=== PATIENT | female | born 1970 | race American Indian/Alaskan Native ===

== ENCOUNTER 2018-03-17 12:30 | Emergency (ER) | payer SELFPAY ==
[2018-03-17 12:39] VITALS: BP 143/65
--- NOTE | 2018-03-17 14:02 | Emergency Department Report ---
Chief Complaint: Extremity Injury, Lower Stated Complaint: LEFT LEG PAIN Time Seen by Provider: 03/17/18 13:50 - HPI History of Present Illness: 47-year-old female presents to the emergency department with a one-week history of left leg pain, worst towards the calf. 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 She denies any swelling, skin color change or trauma to the area. She otherwise denies any past medical history. There is some family history of DVT. She is not taking anything for her symptoms prior presentation. - ROS Review of Systems: Positive for left leg pain Negative for edema, skin color change, rash - Exam Vital Signs: Vital Signs 03/17/18 12:34 Temperature 98.5 F Pulse Rate 68 Respiratory 16 Rate Blood Pressure 143/65 O2 Sat by Pulse 97 Oximetry Physical Exam: There is some reproducible tenderness palpation to the left calf. Heart and lungs sounds are normal to auscultation. Patient does not appear in any acute distress. MSE screening note: Focused history and physical exam performed. Due to findings the following was ordered: I have ordered a left lower extremity venous Doppler ultrasound to rule out a DVT. ED Disposition for MSE Condition: Stable Referrals: PRIMARY CARE, [Primary Care Provider] - 3-5 Days
--- NOTE | 2018-03-17 16:05 | Emergency Department Report ---
HPI - General Chief Complaint: Extremity Injury, Lower Time Seen by Provider: 03/17/18 13:50 - HPI HPI: 47-year-old female presents to the emergency department with a one-week history of left leg pain, worst towards the calf. 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 She denies any swelling, skin color change or trauma to the area. She otherwise denies any past medical history. There is some family history of DVT. She is not taking anything for her symptoms prior presentation. ED Past Medical Hx - Past Medical History Previous Medical History?: No - Surgical History Past Surgical History?: No - Social History Smoking Status: Current Some Day Smoker Substance Use Type: None - Medications Home Medications: Home Medications Medication Instructions Recorded Confirmed Last Taken Type HYDROcodone/APAP 5-325 [[place] 1 each PO Q6HR PRN #10 tablet 03/17/18 Unknown Rx 5/325] ED Review of Systems ROS: Stated complaint: LEFT LEG PAIN Other details as noted in HPI Comment: All other systems reviewed and negative Constitutional: denies: chills, fever Eyes: denies: eye pain, eye discharge, vision change ENT: denies: ear pain, throat pain Respiratory: denies: cough, shortness of breath, wheezing Cardiovascular: denies: chest pain, palpitations Gastrointestinal: denies: abdominal pain, nausea, diarrhea Genitourinary: denies: urgency, dysuria, discharge Musculoskeletal: arthralgia, myalgia Skin: denies: rash, lesions Neurological: denies: headache, weakness, paresthesias Physical Exam - Physical Exam Vital Signs: Vital Signs 03/17/18 03/17/18 12:34 15:51 Temperature 98.5 F Pulse Rate 68 Respiratory 16 18 Rate Blood Pressure 143/65 O2 Sat by Pulse 97 99 Oximetry Physical Exam: GENERAL: The patient is well-developed well-nourished. HENT: Normocephalic. Atraumatic. Patient has moist mucous membranes. EYES: Extraocular motions are intact. Pupils equal reactive to light bilaterally. NECK: Supple. Trachea is midline. CHEST/LUNGS: Clear to auscultation. There is no respiratory distress noted. HEART/CARDIOVASCULAR: Regular. There is no tachycardia. There is no murmur. ABDOMEN: Abdomen is soft, nontender. Patient has normal bowel sounds. Obese habitus. SKIN: Skin is warm and dry. There is no appreciable skin color change, rash or lesions to the affected left lower leg area NEURO: The patient is awake, alert, and oriented. The patient is cooperative. The patient has no focal neurologic deficits. The patient has normal speech. MUSCULOSKELETAL: There is tenderness palpation along the left calf but no obvious deformity. There is no limitation range of motion. ED Course Vital Signs 03/17/18 03/17/18 12:34 15:51 Temperature 98.5 F Pulse Rate 68 Respiratory 16 18 Rate Blood Pressure 143/65 O2 Sat by Pulse 97 99 Oximetry ED Medical Decision Making - Radiology Data Radiology results: report reviewed, image reviewed interpreted by me: X-ray of the left tib-fib does not show any fracture, dislocation or any acute process. Left lower extremity venous Doppler is negative for DVT or any acute process. - Medical Decision Making Patient presents with some ongoing left leg pain, worst towards the calf. No obvious swelling, skin color change, rash or lesions. Venous Doppler of the left lower extremity did not show any signs of DVT. X-ray did not show any occult fracture, dislocation or any other acute process. Patient was seen and towards prior to discharge and appeared stable. She's been given a referral for primary care and an orthopedist as well as some pain medication for home. She is been encouraged to return to the emergency Department with any worsening of her symptoms or any acute distress. - Differential Diagnosis DVT, cellulitis, superficial thrombophlebitis, calf strain Critical Care Time: No Critical care attestation.: If time is entered above; I have spent that time in minutes in the direct care of this critically ill patient, excluding procedure time. ED Disposition Clinical Impression: Left leg pain Disposition: DC-01 TO HOME OR SELFCARE Is pt being admited?: No Condition: Stable Instructions: Arthralgia (ED) Additional Instructions: Please follow up with a primary care physician in the next few days if possible. I have given you a referral for a local orthopedist, Dr. Hutchinson, to follow up regarding your left leg pain. Return to the emergency Department with any worsening of your symptoms or any acute distress. You have been prescribed a medication that is sedating and therefore should not be taken prior to driving, working, and responsible for children and in no way should be mixed with alcohol of any quantity. Prescriptions: HYDROcodone/APAP 5-325 [[place] 5/325] 1 each PO Q6HR PRN #10 tablet PRN Reason: Pain Referrals: CRYSTAL HUTCHINSON MD [Staff Physician] - 3-5 Days PITER DOLAN MD [Staff Physician] - 3-5 Days [facility] [Outside] - 3-5 Days Time of Disposition: 16:14
--- NOTE | 2018-03-17 16:19 | XRay Report ---
FINAL REPORT EXAM: XR TIBIA FIBULA 2V LT HISTORY: left lower leg pain TECHNIQUE: Frontal and lateral views of left tibia. PRIORS: None. FINDINGS: No apparent fracture or dislocation. Soft tissues grossly unremarkable. IMPRESSION: 1. No acute osseous abnormality.
== END 2018-03-17 16:13 | disposition home or self-care (01) ==
LOC: ED 12:30
DX: M79.605 Pain in left leg (principal); F17.200 Nicotine dependence, unspecified, uncomplicated
CPT/HCPCS: 99284

== ENCOUNTER 2018-03-29 14:20 | Emergency (ER) | payer SELFPAY ==
[2018-03-29] MEDS ORDERED: MOTRIN PO ONE (17:08)
--- NOTE | 2018-03-29 18:09 | Emergency Department Report ---
ED Lower Extremity HPI - General Chief Complaint: Extremity Injury, Lower Stated Complaint: KNEE PAIN Time Seen by Provider: 03/29/18 17:02 Source: patient Mode of arrival: Ambulatory Limitations: No Limitations - History of Present Illness Initial Comments: This is a 48-year-old female nontoxic, well nourished in appearance, no acute signs of distress presents to the ED with c/o of acute on chronic intermittent left knee pain 1 week. Patient was seen last month and had a normal tib/fib xray with negative doppler US for DVT/SVT. Patient stated that symptoms resolved since last visit but started again 2 days ago. Patient denies any trauma. Patient denies any numbness, tingling, fever, chills, nausea, vomiting , chest pain, shortness of breath, headache, stiff neck. Patient denies any joint swelling or joint redness. Patient denies decreased range of motion. Patient stated has decreased gait due to pain. Patient denies any allergies or significant past medical history. MD Complaint: knee injury -: week(s) (1) Injury: Knee: Left Place: home Severity: mild Severity scale (0 -10): 3 Improves With: immobilization Worsens With: weight bearing, movement Associated Symptoms: able to partially bear weight, ambulatory. denies: snap/ pop sensation, swelling, numbness, tingling, unable to bear weight - Related Data Previous Rx's Medication Instructions Recorded Last Taken Type HYDROcodone/APAP 5-325 [[place] 1 each PO Q6HR PRN #10 tablet 03/17/18 Unknown Rx 5/325] Acetaminophen/Codeine [Tylenol 1 tab PO Q6H PRN #12 tab 03/29/18 Unknown Rx /Codeine # 3 tab] Ibuprofen [Motrin] 600 mg PO Q8H PRN #30 tablet 03/29/18 Unknown Rx ED Review of Systems ROS: Stated complaint: KNEE PAIN Other details as noted in HPI Constitutional: denies: chills, fever Eyes: denies: eye pain, eye discharge, vision change ENT: denies: ear pain, throat pain Respiratory: denies: cough, shortness of breath, wheezing Cardiovascular: denies: chest pain, palpitations Endocrine: no symptoms reported Gastrointestinal: denies: abdominal pain, nausea, diarrhea Genitourinary: denies: urgency, dysuria, discharge Musculoskeletal: denies: back pain, joint swelling, arthralgia Skin: denies: rash, lesions Neurological: denies: headache, weakness, paresthesias Psychiatric: denies: anxiety, depression Hematological/Lymphatic: denies: easy bleeding, easy bruising ED Past Medical Hx - Past Medical History Previous Medical History?: No - Surgical History Past Surgical History?: No - Social History Smoking Status: Current Every Day Smoker Substance Use Type: None - Medications Home Medications: Home Medications Medication Instructions Recorded Confirmed Last Taken Type HYDROcodone/APAP 5-325 [[place] 1 each PO Q6HR PRN #10 tablet 03/17/18 Unknown Rx 5/325] Acetaminophen/Codeine [Tylenol 1 tab PO Q6H PRN #12 tab 03/29/18 Unknown Rx /Codeine # 3 tab] Ibuprofen [Motrin] 600 mg PO Q8H PRN #30 tablet 03/29/18 Unknown Rx ED Physical Exam - General Limitations: No Limitations General appearance: alert, in no apparent distress - Head Head exam: Present: atraumatic, normocephalic - Eye Eye exam: Present: normal appearance Pupils: Present: normal accommodation - ENT ENT exam: Present: normal exam, mucous membranes moist - Neck Neck exam: Present: normal inspection, full ROM. Absent: tenderness, meningismus, lymphadenopathy - Respiratory Respiratory exam: Present: normal lung sounds bilaterally. Absent: respiratory distress, wheezes, rales, rhonchi, stridor, chest wall tenderness, accessory muscle use, decreased breath sounds, prolonged expiratory - Cardiovascular Cardiovascular Exam: Present: regular rate, normal rhythm, normal heart sounds. Absent: bradycardia, tachycardia, irregular rhythm, systolic murmur, diastolic murmur, rubs, gallop - GI/Abdominal GI/Abdominal exam: Present: soft, normal bowel sounds. Absent: distended, tenderness, guarding, rebound, rigid, diminished bowel sounds - Extremities Exam Extremities exam: Present: normal inspection, full ROM, tenderness, normal capillary refill. Absent: joint swelling - Expanded Lower Extremity Exam Left Hip exam: Present: normal inspection, full ROM. Absent: tenderness, swelling Upper Leg exam: Present: normal inspection, full ROM. Absent: tenderness, swelling Knee exam: Present: normal inspection, full ROM, tenderness, full knee extension. Absent: swelling, abrasion, laceration, ecchymosis, deformity, crepidus, dislocation, erythema, effusion, pain w/ pronation/supination, posterior draw sign, pain/laxity with valgus, pain/laxity with varus Lower Leg exam: Present: normal inspection, full ROM. Absent: tenderness, swelling Ankle exam: Present: normal inspection, full ROM. Absent: tenderness, swelling Foot/Toe exam: Present: normal inspection, full ROM. Absent: tenderness, swelling Neuro vascular tendon exam: Present: no vascular compromise. Absent: pulse deficit, abnormal cap refill, motor deficit, sensory deficit, tendon deficit, extremity cold to touch, pallor, abnormal 2-point discrimination, decreased fine /light touch, foot drop, peroneal nerve deficit, significant pain with passive ROM of distal joint Gait: Positive: observed and limited by pain - Back Exam Back exam: Present: normal inspection, full ROM - Neurological Exam Neurological exam: Present: alert, oriented X3, normal gait - Psychiatric Psychiatric exam: Present: normal affect, normal mood - Skin Skin exam: Present: warm, dry, intact, normal color. Absent: rash ED Course Vital Signs 03/29/18 03/29/18 14:26 17:23 Temperature 98.2 F Pulse Rate 72 Respiratory 18 18 Rate Blood Pressure 127/58 O2 Sat by Pulse 97 Oximetry - Reevaluation(s) Reevaluation #1: 03/29/18 18:11 Patient is speaking in full sentences with no signs of distress noted. ED Lower Extremity MDM - Medical Decision Making This is a 48-year-old female that presents with left knee strain. Patient is stable and was examined by me. I referred patient to an orthopedic doctor for further evaluation for possible MRI. X-ray has been obtained and dictated by the radiologist. Patient is notified of the x-ray report with noted by the patient. Patient does have normal gait with no tenderness and no joint swelling. No ecchymosis. no joint redness or swelling. Not warm to touch. No signs of cellulites present. Patient received a knee immobilizer. Patient was instructed to RICE therapy. Patient received Motrin for pain. Patient is discharged with Motrin. At time of discharge, the patient does not seem toxic or ill in appearance. No acute signs of distress noted. Patient agrees to discharge treatment plan of care. No further questions noted by the patient. Critical care attestation.: If time is entered above; I have spent that time in minutes in the direct care of this critically ill patient, excluding procedure time. ED Disposition Clinical Impression: Strain of left knee Qualifiers: Encounter type: initial encounter Qualified Code(s): S86.912A - Strain of unspecified muscle(s) and tendon(s) at lower leg level, left leg, initial encounter Disposition: TO HOME OR SELFCARE Is pt being admited?: No Does the pt Need Aspirin: No Condition: Stable Instructions: Acetaminophen/Codeine (By mouth), Knee Pain (ED), Knee Immobilizer (ED), RICE Therapy (ED) Additional Instructions: Follow-up with a orthopedic doctor in 3-5 days or if symptoms worsen and continue return to emergency room as soon as possible. Do not operate any machinery while taking Tylenol with codeine as this may cause drowsiness. Prescriptions: Acetaminophen/Codeine [Tylenol /Codeine # 3 tab] 1 tab PO Q6H PRN #12 tab PRN Reason: Pain , Severe (7-10) Ibuprofen [Motrin] 600 mg PO Q8H PRN #30 tablet PRN Reason: Pain Referrals: PRIMARY CAREMD [Primary Care Provider] - 3-5 Days CRYSTAL PATHAK MD [Staff Physician] - 3-5 Days [facility] [Outside] - 3-5 Days [facility] [Outside] - 3-5 Days Forms: Work/School Release Form(ED)
--- NOTE | 2018-03-29 18:14 | XRay Report ---
FINAL REPORT EXAM: XR KNEE 3V RT HISTORY: knee pain medial left knee pain for 1 month. No known injury. Pain with extension. TECHNIQUE: Frontal, lateral, oblique views right knee FINDINGS: There is no evidence of fracture, subluxation, lytic or blastic change or periosteal reaction. The joint spaces appear to be maintained. The soft tissues are unremarkable. IMPRESSION: 1. No plain film evidence of bony or soft tissue abnormality. If further imaging is required, MRI may be helpful.
[2018-03-29 18:31] VITALS: BP 124/81
== END 2018-03-29 18:28 | disposition home or self-care (01) ==
LOC: ED 14:20
DX: S86.912A Strain of unspecified muscle(s) and tendon(s) at lower leg level, left leg, initial encounter (principal); F17.200 Nicotine dependence, unspecified, uncomplicated; X58.XXXA Exposure to other specified factors, initial encounter; Y93.89 Activity, other specified; Y99.8 Other external cause status; Y92.009 Unspecified place in unspecified non-institutional (private) residence as the place of occurrence of the external cause
CPT/HCPCS: 99283

== ENCOUNTER 2018-09-29 05:57 | Inpatient (IN) | payer OTHER ==
--- NOTE | 2018-09-29 06:27 | XRay Report ---
FINAL REPORT PROCEDURE: XR CHEST ROUTINE 2V TECHNIQUE: PA and lateral chest radiographs were obtained. CPT 86894 HISTORY: chest pain with cough. COMPARISON: No prior studies are available for comparison. FINDINGS: Heart: Normal. Mediastinum/Vessels: Normal. Lungs/Pleural space: Lungs are expanded. There are no infiltrates, effusions or pneumothoraces.. Bony thorax: No acute osseous abnormality. Other: IMPRESSION: Normal heart and lungs..
--- NOTE | 2018-09-29 07:11 | Emergency Department Report ---
ED Chest Pain HPI - General Chief Complaint: Chest Pain Stated Complaint: COLD SX Time Seen by Provider: 09/29/18 07:07 Source: patient Mode of arrival: Ambulatory Limitations: No Limitations - History of Present Illness Initial Comments: Patient is a 48-year-old female with extensive emergency room with complaints of chest pain and shortness of breath 3 hours. They state started at work today was having difficulty breathing while working. Patient states the chest pain as a 10 out of 10 and is not radiating. Patient states chest pain is in the center of her chest. Patient states the pain is worse with exertion and cough. Patient states the chest pain is better with rest. Patient is also complaining of cold-like symptoms. Patient is complaining of nasal congestion and nausea vomiting. Patient denies fever and chills. MD Complaint: chest pain -: Sudden Onset: during rest Pain Location: substernal Pain Radiation: none Severity: severe Severity scale (0 -10): 10 Quality: sharp Consistency: constant Improves With: rest Worsens With: exertion, other (COUGH) re: nausea, vomting, dyspnea. denies: diaphoresis, sense of impending doom Other Symptoms: cough. denies: fever, syncope, rash, acid taste in mouth, leg swelling, palpitations, burping Treatments Prior to Arrival: none Aspirin use within the Past 7 Days: (0) No - Related Data On Oral Contraceptives: No Previous Rx's Medication Instructions Recorded Last Taken Type HYDROcodone/APAP 5-325 [[place] 1 each PO Q6HR PRN #10 tablet 03/17/18 Unknown Rx 5/325] Acetaminophen/Codeine [Tylenol 1 tab PO Q6H PRN #12 tab 03/29/18 Unknown Rx /Codeine # 3 tab] Ibuprofen [Motrin] 600 mg PO Q8H PRN #30 tablet 03/29/18 Unknown Rx Allergies Allergy/AdvReac Type Severity Reaction Status Date / Time No Known Allergies Allergy Unverified 07/10/18 16:41 Heart Score - HEART Score History: Slightly suspicious EKG: Normal Age: 45-65 Risk factors: No known risk factors Troponin: < normal limit HEART Score: 1 ED Review of Systems ROS: Stated complaint: COLD SX Other details as noted in HPI Constitutional: denies: chills, fever Eyes: denies: eye pain, eye discharge, vision change ENT: denies: ear pain, throat pain Respiratory: cough, shortness of breath. denies: wheezing Cardiovascular: chest pain. denies: palpitations Endocrine: no symptoms reported Gastrointestinal: nausea, vomiting. denies: abdominal pain, diarrhea Genitourinary: denies: urgency, dysuria, discharge Musculoskeletal: denies: back pain, joint swelling, arthralgia Skin: denies: rash, lesions Neurological: denies: headache, weakness, paresthesias Psychiatric: denies: anxiety, depression Hematological/Lymphatic: denies: easy bleeding, easy bruising ED Past Medical Hx - Past Medical History Previous Medical History?: No - Surgical History Past Surgical History?: Yes Additional Surgical History: Left knee surgery - Family History Family history: no significant - Social History Smoking Status: Never Smoker Substance Use Type: None - Medications Home Medications: Home Medications Medication Instructions Recorded Confirmed Last Taken Type HYDROcodone/APAP 5-325 [[place] 1 each PO Q6HR PRN #10 tablet 03/17/18 Unknown Rx 5/325] Acetaminophen/Codeine [Tylenol 1 tab PO Q6H PRN #12 tab 03/29/18 Unknown Rx /Codeine # 3 tab] Ibuprofen [Motrin] 600 mg PO Q8H PRN #30 tablet 03/29/18 Unknown Rx ED Physical Exam - General Limitations: No Limitations General appearance: alert, in no apparent distress - Head Head exam: Present: atraumatic, normocephalic - Eye Eye exam: Present: normal appearance, PERRL Pupils: Present: normal accommodation - ENT ENT exam: Present: mucous membranes moist - Neck Neck exam: Present: normal inspection - Respiratory Respiratory exam: Present: normal lung sounds bilaterally. Absent: respiratory distress - Cardiovascular Cardiovascular Exam: Present: regular rate, normal rhythm. Absent: systolic murmur, diastolic murmur, rubs, gallop - GI/Abdominal GI/Abdominal exam: Present: soft, normal bowel sounds. Absent: distended, ten derness, guarding - Extremities Exam Extremities exam: Present: normal inspection - Back Exam Back exam: Present: normal inspection - Neurological Exam Neurological exam: Present: alert, oriented X3 - Psychiatric Psychiatric exam: Present: normal affect, normal mood - Skin Skin exam: Present: warm, dry, intact, normal color. Absent: rash ED Course Vital Signs 09/29/18 09/29/18 09/29/18 06:24 06:59 07:00 Temperature 99.5 F 99 F Pulse Rate 76 70 71 Respiratory 18 26 H 19 Rate Blood Pressure 109/63 119/61 Blood Pressure 125/67 [Left] O2 Sat by Pulse 93 98 98 Oximetry 09/29/18 09/29/18 09/29/18 08:00 08:20 08:36 Temperature Pulse Rate 80 68 Respiratory 20 26 H Rate Blood Pressure 103/45 103/45 103/45 Blood Pressure [Left] O2 Sat by Pulse 99 100 91 Oximetry 09/29/18 09/29/18 09/29/18 08:40 08:50 09:00 Temperature Pulse Rate Respiratory Rate Blood Pressure 103/45 103/45 103/45 Blood Pressure [Left] O2 Sat by Pulse 100 100 100 Oximetry 09/29/18 09/29/18 09/29/18 09:10 09:20 09:30 Temperature Pulse Rate Respiratory Rate Blood Pressure 103/45 103/45 103/45 Blood Pressure [Left] O2 Sat by Pulse 100 100 100 Oximetry 09/29/18 09:40 Temperature Pulse Rate Respiratory Rate Blood Pressure 103/45 Blood Pressure [Left] O2 Sat by Pulse 96 Oximetry - Reevaluation(s) Reevaluation #1: Patient's lung process. Patient is wheezing. Patient was given a breathing treatment. Patient's oxygen is better with 2 L of oxygen. Patient was initially hypoxic. Patient was admitted to the hospitalist service. 09/29/18 09:07 - Consultations Consultation #1: Hospitalist consulted for admission. Hospitalist to admit patient. Hospitalist to assume care. 09/29/18 09:09 LIZ score - Liz Score Age > 65: (0) No Aspirin use within the Past 7 Days: (0) No 3 or more CAD Risk Factors: (0) No 2 or more Angina events in past 24 hrs: (0) No Known CAD with more than 50% Stenosis: (0) No Elevated Cardiac Markers: (0) No ST Deviation Greater than 0.5mm: (0) No LIZ Score: 0 ED Medical Decision Making - Lab Data Result diagrams: 09/29/18 10:48 09/29/18 10:48 - EKG Data -: EKG Interpreted by Co EKG shows normal: sinus rhythm, axis, intervals, QRS complexes, ST-T waves Rate: normal - Radiology Data Radiology results: report reviewed CTA CHEST: HISTORY: Elevated D. dimer, rule out pulmonary embolus. COMPARISON: none. TECHNIQUE: Helical CT in 1.25mm intervals following IV contrast. Pulmonary embolus protocol. Sagittal and coronal reformatted images. Rotational MIP images. FINDINGS: Contrast bolus is satisfactory. No pulmonary embolus is identified. Thyroid gland: Normal. Tracheobronchial tree: Normal. Esophagus: Normal. Heart: Normal. Pericardium: Normal. Mediastinum: Normal. Lung Sánchez: Normal. Pleural Spaces: Normal. Musculoskeletal: Normal. IMPRESSION: No evidence for pulmonary embolus. Unremarkable CT chest with contrast. - Medical Decision Making Patient is a 48-year-old female that presents emergency room with complaints of chest pain, cough, nausea vomiting. Patient found to have a bronchitis. Patient's initial cardiac workup was negative. Patient's chest x-ray and CTA are negative. Patient's labs except for low WBC. Patient admitted to the hospitalist service for further evaluation treatment. Patient's initial oxygen level hypoxic. Patient given steroids and breathing treatment. - Differential Diagnosis bronchitis. URI. pna. PE. cp. Critical Care Time: Yes Critical care attestation.: If time is entered above; I have spent that time in minutes in the direct care of this critically ill patient, excluding procedure time. Critical Care Time: 35 minutes ED Disposition Clinical Impression: Hypoxia, Bronchitis, Cough Chest pain Qualifiers: Chest pain type: unspecified Qualified Code(s): R07.9 - Chest pain, unspecified Disposition: OP ADMIT IP TO THIS HOSP Is pt being admited?: Yes Does the pt Need Aspirin: No Condition: Serious Time of Disposition: 09:08
[2018-09-29 07:44] LABS: Hematocrit 38.3 % (30.3-42.9); Mean Corpuscular Volume 94 fl (79-97); Red Blood Count 4.09 M/mm3 (3.65-5.03)
[2018-09-29 07:45] LABS: Basophils # (Auto) 0.1 K/mm3 (0.0-0.1); Basophils % (Auto) 2.6 % (0.0-1.8); Eosinophils # (Auto) 0.1 K/mm3 (0.0-0.4); Eosinophils % (Auto) 1.7 % (0.0-4.3); Lymphocytes # (Auto) 1.1 K/mm3 (1.2-5.4); Lymphocytes % (Auto) 28.1 % (13.4-35.0); Mean Corpuscular HGB Conc 34 % (30-34); Monocytes # (Auto) 0.4 K/mm3 (0.0-0.8); Monocytes % (Auto) 11.1 % (0.0-7.3); Platelet Count 161 K/mm3 (140-440); Red Cell Distribution Width 13.2 % (13.2-15.2)
[2018-09-29 07:56] LABS: Alanine Aminotransferase 10 units/L (7-56); Albumin 3.8 g/dL (3.9-5); BUN/Creatinine Ratio 8; Blood Urea Nitrogen 6 mg/dL (7-17); Calcium 8.4 mg/dL (8.4-10.2); Hemolysis Index 6
--- NOTE | 2018-09-29 08:46 | Cat Scan Report ---
CTA CHEST: HISTORY: Elevated D. dimer, rule out pulmonary embolus. COMPARISON: none. TECHNIQUE: Helical CT in 1.25mm intervals following IV contrast. Pulmonary embolus protocol. Sagittal and coronal reformatted images. Rotational MIP images. FINDINGS: Contrast bolus is satisfactory. No pulmonary embolus is identified. Thyroid gland: Normal. Tracheobronchial tree: Normal. Esophagus: Normal. Heart: Normal. Pericardium: Normal. Mediastinum: Normal. Lung Sánchez: Normal. Pleural Spaces: Normal. Musculoskeletal: Normal. IMPRESSION: No evidence for pulmonary embolus. Unremarkable CT chest with contrast.
[2018-09-29] MEDS ORDERED: SOLU-Medrol IV ONE (09:06)
[2018-09-29] MEDS ORDERED: DUONEB *Not for PRN Use IH ONE (09:06)
[2018-09-29] MEDS ORDERED: ROCEPHIN/NS 1 GM/50 ML 1 GM/50 ML BAG IV ONE (09:08)
[2018-09-29] MEDS ORDERED: SODIUM CHLORIDE FLUSH SYRINGE 10 ML IV PRN (10:16)
[2018-09-29] MEDS ORDERED: NITROSTAT SL PRN (10:16)
--- NOTE | 2018-09-29 10:18 | History and Physical Report ---
History of Present Illness Date of examination: 09/29/18 Date of admission: 09/29/18 09:18 Chief complaint: chest pain History of present illness: Patient is a 48-year-old female with no known past medical history presented to the emergency room with complaints of chest pain for last three days which gotten worse for last 3hours before this admission. She stated that she started at work today and was having difficulty breathing and chest tightness while working. Patient states the chest pain as a 10 out of 10 and is not radiating, located in the center of her chest. Patient states the pain is worse with exertion and cough and chest pain is better with rest. Patient is also complaining of cold-like symptoms with nasal congestion but denies fever and chi lls. In the ER her Andrey were normal, with no specific ST changes. CXR and CTA chest normal. She continue to c/o chest pain but didnot show any sign of dyspnea during the encounter and saturating >94% with RA. she will be admitted for further evaluation and management. Review of System: Constitutional: no fever, no chills, no weight loss Ears, eyes, nose, mouth and throat: + nasal congestion, no nasal discharge, no sinus pressure, no vision change, no red eye. Neck: No neck pain or rigidity. Cardiovascular: + chest pain, no orthopnea, no palpitations, no leg swelling Respiratory: No shortness of breath, no cough, no congestion, no wheezing Gastrointestinal: no abdominal pain, no nausea, no vomiting Genitourinary : no dysuria, no hematuria Musculoskeletal: no joint swelling or muscle ache Integumentary: no rash, no pruritis Neurological: no parathesias, no numbness, no tingling Endocrine: no cold or heat intolerance, no polyuria or polydipsia Hematologic/Lymphatic: no easy bruising, no easy bleeding, no gland swelling Allergic/Immunologic: no urticaria, no angioedema. Past History Past Medical History: arthritis Past Surgical History: Other (left knee surgery) Social history: denies: smoking, alcohol abuse, prescription drug abuse Family history: other (history of CHF in father) Medications and Allergies Allergies Allergy/AdvReac Type Severity Reaction Status Date / Time No Known Allergies Allergy Unverified 07/10/18 16:41 Home Medications Medication Instructions Recorded Confirmed Last Taken Type HYDROcodone/APAP 5-325 [[place] 1 each PO Q6HR PRN #10 tablet 03/17/18 09/29/18 Unknown Rx 5/325] Acetaminophen/Codeine [Tylenol 1 tab PO Q6H PRN #12 tab 03/29/18 09/29/18 Unknown Rx /Codeine # 3 tab] Ibuprofen [Motrin] 600 mg PO Q8H PRN #30 tablet 03/29/18 09/29/18 Unknown Rx Exam - Physical Exam Narrative exam: GENERAL: well-developed obese female lying on bed appeared to be in no discomfort. HEENT: Normocephalic. Atraumatic. No conjunctival congestion or icterus. Patient has moist mucous membranes. NECK: Supple. Trachea midline. CHEST/LUNGS: Clear to auscultated bilaterally, breathing nonlabored. No wheezes crackles or rhonchi. HEART/CARDIOVASCULAR: Regular in rate and rhythm. S1 and S2 positive. ABDOMEN: Abdomen is soft, nontender. Patient has normal bowel sounds. SKIN: There is no rash. Warm and dry. NEURO: No focal motor deficit. Follows command. MUSCULOSKELETAL: No joint effusion or tenderness. EXTRIMITY: No edema, no cyanosis or clubbing. PSYCH: Cooperative. - Constitutional Vitals: Temp Pulse Resp BP Pulse Ox 99 F 80 20 103/45 99 09/29/18 06:59 09/29/18 08:00 09/29/18 08:00 09/29/18 08:00 09/29/18 08:00 Results - Labs CBC & Chem 7: 09/29/18 10:48 09/29/18 10:48 Labs: Abnormal lab results 09/29/18 09/29/18 09/29/18 Range/Units 07:15 07:15 07:15 WBC 4.0 L (4.5-11.0) K/mm3 [place] % (Auto) 11.1 H (0.0-7.3) % Baso % (Auto) 2.6 H (0.0-1.8) % Lymph # 1.1 L (1.2-5.4) K/mm3 D-Dimer 261.37 H (0-234) ng/mlDDU BUN 6 L (7-17) mg/dL Alkaline Phosphatase 24 L (35-129) units/L Albumin 3.8 L (3.9-5) g/dL - Imaging and Cardiology Chest x-ray: report reviewed (No evidence for pulmonary embolus. ) CT scan - chest: report reviewed (No in andfiltrates) Assessment and Plan Chest pain, need to r/o ACS - - will admit to telemetry bed - monitor with serial CE and EKG - will place on Aspirin, statin - as needed SL NTG and iv morphin for pain - Monitor BP, add betablocker and ACEI if BP tolerates - order 2D echo and stress test in the am - cardiac diet now, NPO after midnight Obesity, likely due to excess calorie - We'll give dietary and exercise recommendation when clinically stable and ACS ruled out leukopenia, likely chronic, need outpt follow up. - provide DVT Px with lovenox
[2018-09-29 11:15] LABS: Basophils % (Auto) 0.4 % (0.0-1.8); Eosinophils # (Auto) 0.1 K/mm3 (0.0-0.4); Eosinophils % (Auto) 1.6 % (0.0-4.3); Hemoglobin 13.2 gm/dl (10.1-14.3); Lymphocytes # (Auto) 0.8 K/mm3 (1.2-5.4); Lymphocytes % (Auto) 25.5 % (13.4-35.0); Mean Corpuscular HGB Conc 34 % (30-34); Mean Corpuscular Volume 95 fl (79-97); Monocytes # (Auto) 0.1 K/mm3 (0.0-0.8); Monocytes % (Auto) 3.1 % (0.0-7.3); Platelet Count 156 K/mm3 (140-440); Red Blood Count 4.13 M/mm3 (3.65-5.03); Red Cell Distribution Width 13.4 % (13.2-15.2)
[2018-09-29 11:30] LABS: BUN/Creatinine Ratio 8; Blood Urea Nitrogen 5 mg/dL (7-17); Calcium 8.3 mg/dL (8.4-10.2); Hemolysis Index 4
[2018-09-29] MEDS ORDERED: NACL 0.9% 500 ML 500 ML IV ONE (11:30)
[2018-09-29 12:23] LABS: Chol/HDL Ratio 6.51 %
[2018-09-29] MEDS: NACL 0.9% 1000 ML 1,000 ML IV SCH (13:59)
[2018-09-29] MEDS: PERCOCET 5/325 PO PRN (16:02)
[2018-09-29] MEDS: MORPHINE IV PRN (20:29)
[2018-09-29] MEDS ORDERED: NACL 0.9% IV SCH (22:00)
[2018-09-29] MEDS ORDERED: LOVENOX SUB-Q SCH (22:00)
[2018-09-30] MEDS: PERCOCET 5/325 PO PRN ×2 (02:32→12:11)
[2018-09-30] MEDS: NACL 0.9% 1000 ML 1,000 ML IV SCH (02:34)
[2018-09-30] MEDS: MORPHINE IV PRN (06:18)
[2018-09-30] MEDS ORDERED: LEXISCAN IV ONE (08:41)
[2018-09-30] MEDS ORDERED: ECOTRIN PO SCH (10:00)
[2018-09-30 12:18] VITALS: BP 107/55
--- NOTE | 2018-09-30 14:00 | Discharge Summary ---
Providers - Providers Date of Admission: 09/29/18 09:18 Date of discharge: 09/30/18 Attending physician: YESI FERRERA Primary care physician: MONI LLOYD Hospitalization Condition: Serious Pertinent studies: CXR CTA chest Stress test Hospital course: Patient is a 48-year-old female with no known past medical history presented to the emergency room with complaints of chest pain for last three days. In the ER her Andrey were normal, with no specific ST changes. CXR and CTA chest normal. She continue to c/o chest pain but didnot show any sign of dyspnea during the encounter and saturating >94% with RA. she was admitted for further evaluation and management. Her stress test was normal and then she was discharged home in stable condition. Discharge diagnosis: Chest pain, ruled out ACS, likley GERD -negative stress test - d/c with PPI Obesity, likely due to excess calorie - Given dietary and exercise recommendation as ACS ruled out leukopenia, likely chronic, need outpt follow up. - provide DVT Px with lovenox Disposition: DC-01 TO HOME OR SELFCARE Time spent for discharge: 34 minutes Core Measure Documentation - Palliative Care Palliative Care/ Comfort Measures: Not Applicable - Core Measures Any of the following diagnoses?: none Exam - Physical Exam Narrative exam: GENERAL: well-developed obese female lying on bed appeared to be in no discomfort. HEENT: Normocephalic. Atraumatic. No conjunctival congestion or icterus. Patient has moist mucous membranes. NECK: Supple. Trachea midline. CHEST/LUNGS: Clear to auscultated bilaterally, breathing nonlabored. No wheezes crackles or rhonchi. HEART/CARDIOVASCULAR: Regular in rate and rhythm. S1 and S2 positive. ABDOMEN: Abdomen is soft, nontender. Patient has normal bowel sounds. SKIN: There is no rash. Warm and dry. NEURO: No focal motor deficit. Follows command. MUSCULOSKELETAL: No joint effusion or tenderness. EXTRIMITY: No edema, no cyanosis or clubbing. PSYCH: Cooperative. - Constitutional Vitals: Temp Pulse Resp BP Pulse Ox 98.5 F 61 19 107/55 96 09/30/18 11:22 09/30/18 11:22 09/30/18 11:22 09/30/18 11:22 09/30/18 11:22 Plan Activity: advance as tolerated Weight Bearing Status: Weight Bear as Tolerated Diet: low fat, low salt Additional Instructions: Repeat CBC in two weeks Follow up with: MONI LLOYD MD [Primary Care Provider] - 3-5 Days Forms: Work/School Release Form Prescriptions: Pantoprazole [Protonix] 40 mg PO QDAY #30 tablet
--- NOTE | 2018-09-30 21:38 | Treadmill Report ---
SINGLE ISOTOPE DUAL STUDY MYOCARDIAL PERFUSION SCAN REPORT REFERRING PHYSICIAN: Shabana Lopez MD DESCRIPTION OF PROCEDURE: The patient received 10 mCi of technetium 99m Myoview intravenously under resting conditions. Resting myocardial perfusion scan was done. Subsequently, the patient underwent Lexiscan stress test as per the protocol. During the Lexiscan stress, the patient received 28 mCi of technetium 99m Myoview intravenously. After 30-60 minutes, post stress images were done. Computerized reconstructed images were performed for analysis. The post-stress images did not reveal any perfusion abnormality. Gated study did not reveal any wall motion abnormality. The left ventricular ejection fraction was normal and was calculated to be 60%. The resting images were also normal. CONCLUSION: 1. Normal resting as well as stress myocardial perfusion scan images after the patient underwent Lexiscan stress test. 2. No wall motion abnormality. 3. Normal left ventricular systolic function with left ventricular ejection fraction of 60%. JOB# [id number] [facility]
== END 2018-09-30 15:40 | disposition home or self-care (01) | DRG 392 ==
LOC: ED 05:57 → 3A 09:18
PROVIDERS: ADMIT Internal Medicine; ATTEND Internal Medicine
DX: K21.9 Gastro-esophageal reflux disease without esophagitis (principal); Z68.41 Body mass index [BMI] 40.0-44.9, adult; R09.02 Hypoxemia; J40 Bronchitis, not specified as acute or chronic; E66.9 Obesity, unspecified; D72.819 Decreased white blood cell count, unspecified; M19.90 Unspecified osteoarthritis, unspecified site; Z79.899 Other long term (current) drug therapy
CPT/HCPCS: 36415; 71046; 71275; 78452; 80048; 80053; 80061; 83036; 84484; 84703; 85025; 85379; 87400; 93005; 93010; 93017; 96365; 96375; G0378; A9270-GY; A9502; J0696; J1650; J2270; J2785; J2930; J7030; J7040; Q9967

== ENCOUNTER 2019-01-10 12:19 | Emergency (ER) | payer OTHER ==
[2019-01-10 13:12] VITALS: BP 117/56
--- NOTE | 2019-01-10 13:12 | Emergency Department Report ---
Blank Doc - Documentation Documentation: This is a 48-year-old female that presents with left knee and right foot pain. Patient stated is uncertain if she injured it. This initial assessment/diagnostic orders/clinical plan/treatment(s) is/are subject to change based on patient's health status, clinical progression and re- assessment by fellow clinical providers in the ED. Further treatment and workup at subsequent clinical providers discretion. Patient/guardians urged not to elope from the ED as their condition may be serious if not clinically assessed and managed. Initial orders include: 1- Patient sent to [facility] for further evaluation and treatment 2- xray
--- NOTE | 2019-01-10 13:52 | XRay Report ---
RIGHT FOOT, 3 views: History: Pain. The bony architecture is intact. Bony alignment is normal. No soft tissue abnormalities are seen. The joint spaces appear preserved. A moderate plantar spur is identified. IMPRESSION: Plantar spur.
--- NOTE | 2019-01-10 13:53 | XRay Report ---
LEFT KNEE, 3 views: History: Left knee pain. The bony architecture is intact without evidence of fracture or dislocation. No significant soft tissue abnormality is seen. IMPRESSION: Unremarkable left knee.
--- NOTE | 2019-01-10 17:42 | Emergency Department Report ---
ED Extremity Problem HPI - General Chief complaint: Extremity Problem,Nontraumatic Stated complaint: L KNEE PAIN/R FOOT NUMB Time Seen by Provider: 01/10/19 13:10 Source: patient Mode of arrival: Ambulatory Limitations: No Limitations - History of Present Illness Initial comments: Pt is a 48 yo female who presents to the ED with c/o chronic left knee pain that began causing discomfort a week ago. She states she feels like it is locking up and feels like there is edema present. She states she had a torn meniscus in May 2018 with surgical repair by [facility]. She states she has also been having pain in her right heel. She denies any acute fall, injury or trauma. she denies any numbness or weakness. she has been ambulatory. She denies any PMHx. no allergies to medications. - Related Data Previous Rx's Medication Instructions Recorded Last Taken Type HYDROcodone/APAP 5-325 [[place] 1 each PO Q6HR PRN #10 tablet 03/17/18 Unknown Rx 5/325] Acetaminophen/Codeine [Tylenol 1 tab PO Q6H PRN #12 tab 03/29/18 Unknown Rx /Codeine # 3 tab] Ibuprofen [Motrin] 600 mg PO Q8H PRN #30 tablet 03/29/18 Unknown Rx Pantoprazole [Protonix] 40 mg PO QDAY #30 tablet 09/30/18 Unknown Rx Ibuprofen [Motrin 800 MG tab] 800 mg PO Q8HR PRN #20 tablet 01/10/19 Unknown Rx Allergies Allergy/AdvReac Type Severity Reaction Status Date / Time No Known Allergies Allergy Unverified 07/10/18 16:41 ED Review of Systems ROS: Stated complaint: L KNEE PAIN/R FOOT NUMB Other details as noted in HPI Comment: All other systems reviewed and negative ED Past Medical Hx - Past Medical History Previous Medical History?: No Hx Congestive Heart Failure: No Hx Diabetes: No Hx Asthma: No Hx COPD: No - Surgical History Past Surgical History?: Yes Additional Surgical History: Left knee surgery - Social History Smoking Status: Former Smoker Substance Use Type: None - Medications Home Medications: Home Medications Medication Instructions Recorded Confirmed Last Taken Type HYDROcodone/APAP 5-325 [[place] 1 each PO Q6HR PRN #10 tablet 03/17/18 09/29/18 Unknown Rx 5/325] Acetaminophen/Codeine [Tylenol 1 tab PO Q6H PRN #12 tab 03/29/18 09/29/18 Unknown Rx /Codeine # 3 tab] Ibuprofen [Motrin] 600 mg PO Q8H PRN #30 tablet 03/29/18 09/29/18 Unknown Rx Pantoprazole [Protonix] 40 mg PO QDAY #30 tablet 09/30/18 Unknown Rx Ibuprofen [Motrin 800 MG tab] 800 mg PO Q8HR PRN #20 tablet 01/10/19 Unknown Rx ED Physical Exam - General Limitations: No Limitations General appearance: alert, in no apparent distress - Head Head exam: Present: atraumatic, normocephalic - Eye Eye exam: Present: normal appearance, PERRL - ENT ENT exam: Present: mucous membranes moist - Respiratory Respiratory exam: Absent: respiratory distress - Extremities Exam Extremities exam: Present: other (FROM of the bilateral knees, ankles, feet, and digits, TTP over the right heel, TTP over the medial portion of the left knee, no joint laxity, neurovascularly intact bilaterally, no edema present, LEs are equal in size, no erythema, no increased warmth, no signs of infection) - Neurological Exam Neurological exam: Present: alert, oriented X3 - Psychiatric Psychiatric exam: Present: normal affect, normal mood - Skin Skin exam: Present: warm, dry, intact ED Course Vital Signs 01/10/19 13:10 Temperature 98.8 F Pulse Rate 80 Respiratory 16 Rate Blood Pressure 117/56 O2 Sat by Pulse 96 Oximetry ED Medical Decision Making - Radiology Data Radiology results: report reviewed LEFT KNEE, 3 views: History: Left knee pain. The bony architecture is intact without evidence of fracture or dislocation. No significant soft tissue abnormality is seen. IMPRESSION: Unremarkable left knee. Transcribed By: TTR Dictated By: CHANDNI MARES JR, MD Electronically Authenticated By: CHANDNI MARES JR, MD Signed Date/Time: 01/10/19 1348 RIGHT FOOT, 3 views: History: Pain. The bony architecture is intact. Bony alignment is normal. No soft tissue abnormalities are seen. The joint spaces appear preserved. A moderate plantar spur is identified. IMPRESSION: Plantar spur. Transcribed By: TTR Dictated By: CHANDNI MARES JR, MD Electronically Authenticated By: CHANDNI MARES JR, MD Signed Date/Time: 01/10/19 1348 - Medical Decision Making Pt is a 48 yo female who presents to the ED with c/o chronic left knee pain that began causing discomfort a week ago. She states she feels like it is locking up and feels like there is edema present. She states she had a torn meniscus in May 2018 with surgical repair by [facility]. She states she has also been having pain in her right heel. She denies any acute fall, injury or trauma. she denies any numbness or weakness. she has been ambulatory. She denies any PMHx. no allergies to medications. XR of left knee with no acute process, XR of the right foot with plantar spur, pt has FROM, no edema, neurovascularly intact, pt given anti-inflammatory. discussed to use elevation, ice, rest. referred pt to orthopedic for further evaluation and management. follow up with PCP in the next 2-3 dyas. Return to the emergency room for any new or worsening symptoms. - Differential Diagnosis strain, sprain, plantar fasciitis, bone spur Critical care attestation.: If time is entered above; I have spent that time in minutes in the direct care of this critically ill patient, excluding procedure time. ED Disposition Clinical Impression: Left knee pain Qualifiers: Chronicity: acute Qualified Code(s): M25.562 - Pain in left knee Heel spur Qualifiers: Laterality: right Qualified Code(s): M77.31 - Calcaneal spur, right foot Disposition: TO HOME OR SELFCARE Is pt being admited?: No Does the pt Need Aspirin: No Condition: Stable Instructions: Knee Pain (ED), Arthralgia (ED) Additional Instructions: Please use medication as needed as prescribed. Please elevate and ice the areas. Follow up with your orthopedic doctor as soon as possible. follow up with your primary care doctor in the next 2-3 days. Return to the emergency room for any new or worsening symptoms. Prescriptions: Ibuprofen [Motrin 800 MG tab] 800 mg PO Q8HR PRN #20 tablet PRN Reason: Pain, Moderate (4-6) Referrals: FIFI LEE MD [Primary Care Provider] - 2-3 Days [facility] [Provider Group] - [place] Time of Disposition: 17:42 Print Language: SETSWANA
== END 2019-01-10 18:34 | disposition home or self-care (01) ==
LOC: ED 12:19
DX: M25.562 Pain in left knee (principal); M77.31 Calcaneal spur, right foot; Z87.891 Personal history of nicotine dependence; Z79.899 Other long term (current) drug therapy
CPT/HCPCS: 99283

== ENCOUNTER 2019-05-02 11:28 | Emergency (ER) | payer SELFPAY ==
--- NOTE | 2019-05-02 11:41 | Emergency Department Report ---
Blank Doc - Documentation Documentation: This is a 49-year-old female that presents with acute on chronic left knee pain with history of surgery. Denies any new injuries. Also stated has left foot pain after injury at work 2 days ago. This initial assessment/diagnostic orders/clinical plan/treatment(s) is/are subject to change based on patient's health status, clinical progression and re- assessment by fellow clinical providers in the ED. Further treatment and workup at subsequent clinical providers discretion. Patient/guardians urged not to elope from the ED as their condition may be serious if not clinically assessed and managed. Initial orders include: 1- Patient sent to [facility] for further evaluation and treatment 2- xrays of foot
--- NOTE | 2019-05-02 12:32 | XRay Report ---
LEFT FOOT, 3 VIEWS INDICATION: Left foot pain. COMPARISON: None. IMPRESSION: No acute osseous or soft tissue abnormality. No significant DJD. Small plantar spur i s noted. Signer Name: Rudy Cannon Jr, MD Signed: 05/02/2019 12:28 PM Workstation Name: [id number]
--- NOTE | 2019-05-02 13:50 | Emergency Department Report ---
ED Lower Extremity HPI - General Chief Complaint: Extremity Problem,Nontraumatic Stated Complaint: LT KNEE/FOOT PAIN Time Seen by Provider: 05/02/19 11:40 Source: patient Mode of arrival: Ambulatory Limitations: No Limitations - History of Present Illness Initial Comments: This is a 49-year-old -[place] female who presents to the emergency room with left knee pain and left foot pain for several days. Patient states she injured her left knee at work last year and is currently seeing in Workmen's Comp. States she is waiting referral to orthopedics for follow-up. She reports pain to left knee and ankle is worse with walking and movement. States pain to left knee is the medial and worse with movement. She denies swelling, redness, discoloration, numbness or tingling, paresthesias, weakness, or warm to touch. MD Complaint: knee injury (left), foot injury (left) Onset/Timin -: days(s) Injury: Knee: Left, Ankle: Left Type of Injury: unknown Place: home Severity: severe Severity scale (0 -10): 10 Improves With: immobilization Worsens With: weight bearing, movement Context: walking Associated Symptoms: swelling, able to partially bear weight, ambulatory. denies: snap/pop sensation, numbness, tingling Treatments Prior to Arrival: NSAIDS - Related Data Previous Rx's Medication Instructions Recorded Last Taken Type HYDROcodone/APAP 5-325 [[place] 1 each PO Q6HR PRN #10 tablet 03/17/18 Unknown Rx 5/325] Acetaminophen/Codeine [Tylenol 1 tab PO Q6H PRN #12 tab 03/29/18 Unknown Rx /Codeine # 3 tab] Ibuprofen [Motrin] 600 mg PO Q8H PRN #30 tablet 03/29/18 Unknown Rx Pantoprazole [Protonix] 40 mg PO QDAY #30 tablet 09/30/18 Unknown Rx Ibuprofen [Motrin 800 MG tab] 800 mg PO Q8HR PRN #20 tablet 01/10/19 Unknown Rx Ibuprofen [Motrin 800 MG tab] 800 mg PO Q8HR PRN #20 tablet 05/02/19 Unknown Rx Allergies Allergy/AdvReac Type Severity Reaction Status Date / Time No Known Allergies Allergy Unverified 07/10/18 16:41 ED Review of Systems ROS: Stated complaint: LT KNEE/FOOT PAIN Other details as noted in HPI Constitutional: denies: chills, fever Respiratory: denies: cough, shortness of breath, wheezing Cardiovascular: denies: chest pain, palpitations Gastrointestinal: denies: abdominal pain, nausea, diarrhea Musculoskeletal: arthralgia (left knee and left ankle pain). denies: back pain, joint swelling Skin: denies: rash, lesions Neurological: denies: headache, weakness, paresthesias Psychiatric: denies: anxiety, depression ED Past Medical Hx - Past Medical History Previous Medical History?: No Hx Congestive Heart Failure: No Hx Diabetes: No Hx Asthma: No Hx COPD: No - Surgical History Past Surgical History?: Yes Additional Surgical History: Left knee surgery, tubiligation - Social History Smoking Status: Never Smoker Substance Use Type: None - Medications Home Medications: Home Medications Medication Instructions Recorded Confirmed Last Taken Type HYDROcodone/APAP 5-325 [[place] 1 each PO Q6HR PRN #10 tablet 03/17/18 09/29/18 Unknown Rx 5/325] Acetaminophen/Codeine [Tylenol 1 tab PO Q6H PRN #12 tab 03/29/18 09/29/18 Unknown Rx /Codeine # 3 tab] Ibuprofen [Motrin] 600 mg PO Q8H PRN #30 tablet 03/29/18 09/29/18 Unknown Rx Pantoprazole [Protonix] 40 mg PO QDAY #30 tablet 09/30/18 Unknown Rx Ibuprofen [Motrin 800 MG tab] 800 mg PO Q8HR PRN #20 tablet 01/10/19 Unknown Rx Ibuprofen [Motrin 800 MG tab] 800 mg PO Q8HR PRN #20 tablet 05/02/19 Unknown Rx ED Physical Exam - General Limitations: No Limitations General appearance: alert, in no apparent distress - Respiratory Respiratory exam: Present: normal lung sounds bilaterally. Absent: respiratory distress - Cardiovascular Cardiovascular Exam: Present: regular rate, normal rhythm. Absent: systolic murmur, diastolic murmur, rubs, gallop - GI/Abdominal GI/Abdominal exam: Present: soft, normal bowel sounds. Absent: distended, tenderness, guarding, rebound, rigid - Expanded Lower Extremity Exam Left Hip exam: Present: normal inspection, full ROM Upper Leg exam: Present: normal inspection, full ROM Knee exam: Present: full ROM (pain with range of motion), tenderness (tenderness medial patella), full knee extension. Absent: swelling, abrasion, laceration, ecchymosis, deformity, crepidus, dislocation, erythema, effusion, pain w/ pronation/supination, posterior draw sign, pain/laxity with valgus, pain/laxity with varus Lower Leg exam: Present: normal inspection, full ROM Ankle exam: Present: normal inspection, full ROM Foot/Toe exam: Present: full ROM, calcaneal tenderness. Absent: swelling, abrasion, laceration, ecchymosis, deformity, crepidus, dislocation, erythema, amputation, puncture wound, foreign body, tenderness at base of 5th metatarsal, nail avulsion, subungual hematoma Neuro vascular tendon exam: Present: no vascular compromise Gait: Positive: observed and limited by pain - Neurological Exam Neurological exam: Present: alert, oriented X3, normal gait - Psychiatric Psychiatric exam: Present: normal affect, normal mood - Skin Skin exam: Present: warm, dry, intact, normal color. Absent: rash ED Course Vital Signs 05/02/19 11:43 Temperature 98.7 F Pulse Rate 72 Respiratory 18 Rate Blood Pressure 139/82 O2 Sat by Pulse 97 Oximetry ED Lower Extremity MDM - Radiology Data Radiology results: report reviewed LEFT FOOT, 3 VIEWS INDICATION: Left foot pain. COMPARISON: None. IMPRESSION: No acute osseous or soft tissue abnormality. No significant DJD. Small plantar spur is noted. - Medical Decision Making Patient was examined by me. Patient is nontoxic appearing and stable. Vitals are normal. Obtained x-ray of right foot. No acute osseous or soft tissue abnormality. No significant DJD. Small plantar spur is noted. Left knee pain with movement and tenderness on palpation of medial patella, no swelling, or erythema. Patient is followed by workman's comp for left knee injury. Given analgesics while in the ER. Referral to Orthopedics for continued care. Patient informed of results. Start ibuprofen for pain. Follow up with PCP or return to the ER with worsening symptoms. Patient discharged home in stable condition. Critical care attestation.: If time is entered above; I have spent that time in minutes in the direct care of this critically ill patient, excluding procedure time. ED Disposition Clinical Impression: Left medial knee pain, Pain in left foot Heel spur Qualifiers: Laterality: left Qualified Code(s): M77.32 - Calcaneal spur, left foot Disposition: DC-01 TO HOME OR SELFCARE Is pt being admited?: No Does the pt Need Aspirin: No Condition: Stable Instructions: Arthralgia (ED), Knee Pain (ED) Prescriptions: Ibuprofen [Motrin 800 MG tab] 800 mg PO Q8HR PRN #20 tablet PRN Reason: Pain , Severe (7-10) Referrals: [facility] [Outside] - 3-5 Days [facility] [Outside] - 3-5 Days [facility] [Outside] - 3-5 Days CRYSTAL PATHAK MD [Staff Physician] - 3-5 Days Forms: Work/School Release Form(ED) Time of Disposition: 15:28
[2019-05-02] MEDS ORDERED: IBUPROFEN PO ONE (15:23)
[2019-05-02 15:51] VITALS: BP 136/80
== END 2019-05-02 15:50 | disposition home or self-care (01) ==
LOC: ED 11:28
DX: M77.32 Calcaneal spur, left foot (principal); M25.562 Pain in left knee; Z98.890 Other specified postprocedural states; Z98.51 Tubal ligation status; Z79.899 Other long term (current) drug therapy

== ENCOUNTER 2020-01-30 19:11 | Emergency (ER) | payer SELFPAY ==
[2020-01-30 19:26] VITALS: BP 155/87
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
== END 2020-01-30 20:01 | disposition left against medical advice (07) ==
LOC: ED 19:11
DX: M25.562 Pain in left knee (principal)
CPT/HCPCS: 99282

== ENCOUNTER 2021-02-20 10:27 | Emergency (ER) | payer SELFPAY ==
[2021-02-20] MEDS ORDERED: dexAMETHasone 4 MG/ML VIAL IM STA (15:15)
[2021-02-20] MEDS ORDERED: KETOROLAC 60 MG/2 ML INJ IM ONE (15:15)
--- NOTE | 2021-02-20 15:25 | Emergency Department Report ---
ED General Adult HPI - General Chief complaint: Back Pain/Injury Stated complaint: SEVERE BACK PAIN Time Seen by Provider: 02/20/21 15:06 Source: patient Mode of arrival: Ambulatory Limitations: No Limitations - History of Present Illness Initial comments: 50-year-old -[place] female patient presents with complaints of left lower back pain radiating down her buttocks and into her leg for the past 3 years, with this particular episode worsening over the past week. She reports a history of a herniated disc in her low back. She denies any new injuries, numbness/tingling/weakness in her limbs, difficulty with ambulation, or loss of bladder/bowel control. Patient rates her current pain as a 9/10 in severity and states OTC medications are not helping. Pain worsens with standing for extended periods of time and sitting on her left buttock. She also denies any history of cancer -: Gradual - Related Data Previous Rx's Medication Instructions Recorded Last Taken Type HYDROcodone/APAP 5-325 [[place] 1 each PO Q6HR PRN #10 tablet 03/17/18 Unknown Rx 5/325] Acetaminophen/Codeine [Tylenol 1 tab PO Q6H PRN #12 tab 03/29/18 Unknown Rx /Codeine # 3 tab] Ibuprofen [Motrin] 600 mg PO Q8H PRN #30 tablet 03/29/18 Unknown Rx Pantoprazole [Protonix] 40 mg PO QDAY #30 tablet 09/30/18 Unknown Rx Ibuprofen [Motrin 800 MG tab] 800 mg PO Q8HR PRN #20 tablet 01/10/19 Unknown Rx Ibuprofen [Motrin 800 MG tab] 800 mg PO Q8HR PRN #20 tablet 05/02/19 Unknown Rx Leg Brace [Knee Brace] 1 each MC DAILY #1 each 01/30/20 Unknown Rx Diclofenac Sodium 50 mg PO TID PRN #21 tablet. 02/20/21 Unknown Rx Prednisone [predniSONE 5 mg (6-Day 5 mg PO .TAPER #1 tab.ds.pk 02/20/21 Unknown Rx Pack, 21 Tabs)] methocarbamoL [Methocarbamol] 750 - 1,500 mg PO TID PRN #30 02/20/21 Unknown Rx tablet Allergies Allergy/AdvReac Type Severity Reaction Status Date / Time No Known Allergies Allergy Verified 02/20/21 10:31 ED Review of Systems ROS: Stated complaint: SEVERE BACK PAIN Other details as noted in HPI Constitutional: denies: fever, malaise Endocrine: denies: excessive sweating Genitourinary: denies: urgency, dysuria, frequency, hematuria Musculoskeletal: back pain Neurological: denies: numbness, paresthesias, abnormal gait ED Past Medical Hx - Past Medical History Previous Medical History?: No Hx Congestive Heart Failure: No Hx Diabetes: No Hx Asthma: No Hx COPD: No - Surgical History Past Surgical History?: Yes Additional Surgical History: Left knee surgery, tubiligation - Social History Smoking Status: Never Smoker Substance Use Type: None - Medications Home Medications: Home Medications Medication Instructions Recorded Confirmed Last Taken Type HYDROcodone/APAP 5-325 [[place] 1 each PO Q6HR PRN #10 tablet 03/17/18 09/29/18 Unknown Rx 5/325] Acetaminophen/Codeine [Tylenol 1 tab PO Q6H PRN #12 tab 03/29/18 09/29/18 Unknown Rx /Codeine # 3 tab] Ibuprofen [Motrin] 600 mg PO Q8H PRN #30 tablet 03/29/18 09/29/18 Unknown Rx Pantoprazole [Protonix] 40 mg PO QDAY #30 tablet 09/30/18 Unknown Rx Ibuprofen [Motrin 800 MG tab] 800 mg PO Q8HR PRN #20 tablet 01/10/19 Unknown Rx Ibuprofen [Motrin 800 MG tab] 800 mg PO Q8HR PRN #20 tablet 05/02/19 Unknown Rx Leg Brace [Knee Brace] 1 each MC DAILY #1 each 01/30/20 Unknown Rx Diclofenac Sodium 50 mg PO TID PRN #21 tablet. 02/20/21 Unknown Rx Prednisone [predniSONE 5 mg (6-Day 5 mg PO .TAPER #1 tab.ds.pk 02/20/21 Unknown Rx Pack, 21 Tabs)] methocarbamoL [Methocarbamol] 750 - 1,500 mg PO TID PRN #30 02/20/21 Unknown Rx tablet ED Physical Exam - General Limitations: No Limitations General appearance: alert, in no apparent distress - Head Head exam: Present: atraumatic, normocephalic - Eye Eye exam: Present: normal appearance. Absent: scleral icterus - Respiratory Respiratory exam: Absent: respiratory distress - Cardiovascular Cardiovascular Exam: Present: regular rate - Extremities Exam Extremities exam: Present: full ROM - Back Exam Back exam: Absent: vertebral tenderness - Expanded Back Exam Expanded Back exam: Absent: saddle anesthesia Back exam: Sciatic Notch Tenderness: Left, Positive Straight Leg Raise: Left - Neurological Exam Neurological exam: Present: alert, oriented X3 - Expanded Neurological Exam Expanded Sensory exam: Lower Extremity Light Touch: Normal Motor strength exam: RLE: 5, LLE: 5 - Psychiatric Psychiatric exam: Present: normal affect, normal mood - Skin Skin exam: Present: warm, dry, intact, normal color. Absent: rash, diaphoretic, pallor ED Course Vital Signs 02/20/21 10:33 Temperature 98.5 F Pulse Rate 70 Respiratory 16 Rate Blood Pressure 148/66 O2 Sat by Pulse 99 Oximetry ED Medical Decision Making - Medical Decision Making 50-year-old -[place] female patient presents with complaints of left lower back pain radiating down her buttocks and into her leg for the past 3 years, with this particular episode worsening over the past week. She reports a history of a herniated disc in her low back. She denies any new injuries, numbness/tingling/weakness in her limbs, difficulty with ambulation, or loss of bladder/bowel control. Patient rates her current pain as a 9/10 in severity and states OTC medications are not helping. Pain worsens with standing for extended periods of time and sitting on her left buttock. She also denies any history of cancer History and physical are consistent with sciatica. Patient given Toradol and Decadron here in ED. Discussed importance of stretching and follow-up with junk removal specialist given history of herniated disks. Patient's vitals are within normal limits, she is well-appearing, she is stable for discharge home. Strict return precautions were discussed in detail with patient who verbalizes understanding. Critical care attestation.: If time is entered above; I have spent that time in minutes in the direct care of this critically ill patient, excluding procedure time. ED Disposition Clinical Impression: Low back pain with left-sided sciatica Disposition: TO HOME OR SELFCARE Is pt being admited?: No Condition: Stable Instructions: Sciatica Prescriptions: Diclofenac Sodium 50 mg PO TID PRN #21 tablet.dr LOCO Reason: Pain methocarbamoL [Methocarbamol] 750 - 1,500 mg PO TID PRN #30 tablet PRN Reason: Muscle spasm/tightness Prednisone [predniSONE 5 mg (6-Day Pack, 21 Tabs)] 5 mg PO .TAPER #1 tab.vanessa Referrals: [facility] [Provider Group] - 3-5 Days Forms: Work/School Release Form(ED)
[2021-02-20 16:03] VITALS: BP 142/78
== END 2021-02-20 16:02 | disposition home or self-care (01) ==
LOC: ED 10:27
DX: M54.42 Lumbago with sciatica, left side (principal); Z98.890 Other specified postprocedural states; Z79.899 Other long term (current) drug therapy
CPT/HCPCS: 96372; 99282; J1100; J1885

== ENCOUNTER 2021-06-19 12:26 | Emergency (ER) | payer SELFPAY ==
[2021-06-19] MEDS ORDERED: IBUPROFEN 800 MG TAB PO ONE (13:03)
--- NOTE | 2021-06-19 13:50 | XRay Report ---
Left knee, 3 views HISTORY: Knee pain COMPARISON: 01/10/2019 FINDINGS: Mild tricompartmental osteoarthritis, preferentially involving the medial compartment. No a cute fracture or malalignment. No significant joint capsular distention. Signer Name: Messi Madrid MD Signed: 06/19/2021 1:45 PM Workstation Name: [id number]
--- NOTE | 2021-06-19 14:19 | Vascular Lab Report ---
VL venous duplex LE LT INDICATION / CLINICAL INFORMATION: left leg pain family hx of DVT. TECHNIQUE: Duplex doppler imaging was performed using venous compression and other maneuvers. COMPARISON: None available. FINDINGS: No venous thrombosis is identified within the visualized extremity vasculature. ADDITIONAL FINDINGS: Juan's cyst left popliteal fossa measuring up to 3.2 cm. Left knee effusion. IMPRESSION: 1. No sonographic evidence for DVT in the visualized left lower extremity vasculature. 2. Left knee effusion Signer Name: Vito Caldwell MD Signed: 06/19/2021 2:15 PM Workstation Name: [id number]
--- NOTE | 2021-06-19 14:49 | Emergency Department Report ---
ED Lower Extremity HPI - General Chief Complaint: Extremity Injury, Lower Stated Complaint: LT KNEE PAIN Time Seen by Provider: 06/19/21 12:44 Source: patient Mode of arrival: Ambulatory Limitations: No Limitations - History of Present Illness Initial Comments: Chief complaint: "My knee hurts. I have blood clots in my family." HPI: This is a 51-year-old female with history of meniscus surgery, heel spur who presents with left knee pain radiating to the ankle and hip for past week. She concern for DVT with family history. Moderately severe. No improvement with ibuprofen 800 mg tablets. In 2018 patient had meniscus repair [address] García. Patient denies chest pain, shortness of breath, new injury. She denies fever. She has posterior knee pain. She feels swelling in this area. MD Complaint: other (Left knee pain swelling) -: Gradual Injury: Knee: Left Severity: moderate Severity scale (0 -10): 7 Improves With: nothing Worsens With: weight bearing, movement, palpation Associated Symptoms: swelling - Related Data Previous Rx's Medication Instructions Recorded Last Taken Type HYDROcodone/APAP 5-325 [[place] 1 each PO Q6HR PRN #10 tablet 03/17/18 Unknown Rx 5/325] Acetaminophen/Codeine [Tylenol 1 tab PO Q6H PRN #12 tab 03/29/18 Unknown Rx /Codeine # 3 tab] Ibuprofen [Motrin] 600 mg PO Q8H PRN #30 tablet 03/29/18 Unknown Rx Pantoprazole [Protonix] 40 mg PO QDAY #30 tablet 09/30/18 Unknown Rx Ibuprofen [Motrin 800 MG tab] 800 mg PO Q8HR PRN #20 tablet 01/10/19 Unknown Rx Ibuprofen [Motrin 800 MG tab] 800 mg PO Q8HR PRN #20 tablet 05/02/19 Unknown Rx Leg Brace [Knee Brace] 1 each MC DAILY #1 each 01/30/20 Unknown Rx Diclofenac Sodium 50 mg PO TID PRN #21 tablet. 02/20/21 Unknown Rx Prednisone [predniSONE 5 mg (6-Day 5 mg PO .TAPER #1 tab.ds.pk 02/20/21 Unknown Rx Pack, 21 Tabs)] methocarbamoL [Methocarbamol] 750 - 1,500 mg PO TID PRN #30 02/20/21 Unknown Rx tablet HYDROcodone/APAP 5-325 [[place] 1 each PO Q4HR PRN #15 tablet 06/19/21 Unknown Rx 5/325] Ibuprofen [Motrin 400 MG tab] 400 mg PO TID 5 Days #15 tablet 06/19/21 Unknown Rx Allergies Allergy/AdvReac Type Severity Reaction Status Date / Time No Known Allergies Allergy Verified 06/19/21 12:40 ED Review of Systems ROS: Stated complaint: LT KNEE PAIN Other details as noted in HPI Comment: Unobtainable due to pts medical conditions Constitutional: denies: fever, malaise Respiratory: denies: cough, shortness of breath Cardiovascular: denies: chest pain Gastrointestinal: denies: abdominal pain, nausea, vomiting Musculoskeletal: arthralgia ED Past Medical Hx - Past Medical History Previous Medical History?: No Hx Congestive Heart Failure: No Hx Diabetes: No Hx Asthma: No Hx COPD: No - Surgical History Past Surgical History?: Yes Additional Surgical History: Left knee surgery, tubiligation - Social History Smoking Status: Never Smoker Substance Use Type: None - Medications Home Medications: Home Medications Medication Instructions Recorded Confirmed Last Taken Type HYDROcodone/APAP 5-325 [[place] 1 each PO Q6HR PRN #10 tablet 03/17/18 09/29/18 Unknown Rx 5/325] Acetaminophen/Codeine [Tylenol 1 tab PO Q6H PRN #12 tab 03/29/18 09/29/18 Unknown Rx /Codeine # 3 tab] Ibuprofen [Motrin] 600 mg PO Q8H PRN #30 tablet 03/29/18 09/29/18 Unknown Rx Pantoprazole [Protonix] 40 mg PO QDAY #30 tablet 09/30/18 Unknown Rx Ibuprofen [Motrin 800 MG tab] 800 mg PO Q8HR PRN #20 tablet 01/10/19 Unknown Rx Ibuprofen [Motrin 800 MG tab] 800 mg PO Q8HR PRN #20 tablet 05/02/19 Unknown Rx Leg Brace [Knee Brace] 1 each MC DAILY #1 each 01/30/20 Unknown Rx Diclofenac Sodium 50 mg PO TID PRN #21 tablet. 02/20/21 Unknown Rx Prednisone [predniSONE 5 mg (6-Day 5 mg PO .TAPER #1 tab.ds.pk 02/20/21 Unknown Rx Pack, 21 Tabs)] methocarbamoL [Methocarbamol] 750 - 1,500 mg PO TID PRN #30 02/20/21 Unknown Rx tablet HYDROcodone/APAP 5-325 [[place] 1 each PO Q4HR PRN #15 tablet 06/19/21 Unknown Rx 5/325] Ibuprofen [Motrin 400 MG tab] 400 mg PO TID 5 Days #15 tablet 06/19/21 Unknown Rx ED Physical Exam - General Limitations: No Limitations General appearance: alert, in no apparent distress - Head Head exam: Present: atraumatic, normocephalic - Eye Eye exam: Present: normal appearance - ENT ENT exam: Present: mucous membranes moist - Neck Neck exam: Present: normal inspection, full ROM - Respiratory Respiratory exam: Present: normal lung sounds bilaterally. Absent: respiratory distress, wheezes, rales, rhonchi - Cardiovascular Cardiovascular Exam: Present: regular rate, normal rhythm, normal heart sounds. Absent: systolic murmur, diastolic murmur, rubs, gallop - GI/Abdominal GI/Abdominal exam: Present: soft, normal bowel sounds. Absent: distended, tenderness, guarding, rebound - Extremities Exam Extremities exam: Present: normal inspection - Expanded Lower Extremity Exam Left Upper Leg exam: Present: normal inspection, full ROM Knee exam: Present: tenderness, swelling. Absent: abrasion, laceration, ecchymosis, deformity, dislocation, erythema, effusion Ankle exam: Present: normal inspection, full ROM - Back Exam Back exam: Present: normal inspection - Neurological Exam Neurological exam: Present: alert, oriented X3 - Psychiatric Psychiatric exam: Present: normal affect, normal mood - Skin Skin exam: Present: warm, dry, intact, normal color. Absent: rash Critical care attestation.: If time is entered above; I have spent that time in minutes in the direct care of this critically ill patient, excluding procedure time. ED Disposition Clinical Impression: Osteoarthritis, knee, Bakers cyst Disposition: 01 HOME / SELF CARE / HOMELESS Is pt being admited?: No Does the pt Need Aspirin: No Condition: Stable Instructions: Osteoarthritis, Juan Cyst Prescriptions: Ibuprofen [Motrin 400 MG tab] 400 mg PO TID 5 Days #15 tablet HYDROcodone/APAP 5-325 [[place] 5/325] 1 each PO Q4HR PRN #15 tablet PRN Reason: Pain Referrals: CRYSTAL PATHAK MD [Staff Physician] - 3-5 Days Forms: Work/School Release Form(ED)
[2021-06-19 15:19] VITALS: BP 122/70
== END 2021-06-19 15:19 | disposition home or self-care (01) ==
LOC: ED 12:26
DX: M17.12 Unilateral primary osteoarthritis, left knee (principal); M71.22 Synovial cyst of popliteal space [Baker], left knee; Z98.890 Other specified postprocedural states
CPT/HCPCS: 99284

== ENCOUNTER 2021-11-08 11:00 | Emergency (ER) | payer SELFPAY ==
[2021-11-08 11:09] VITALS: BP 176/83
[2021-11-08] MEDS ORDERED: KETOROLAC 10 MG TAB PO ONE (12:44)
[2021-11-08] MEDS ORDERED: CYCLOBENZAPRINE 10 MG TAB PO ONE (12:44)
--- NOTE | 2021-11-08 13:11 | XRay Report ---
RIGHT SHOULDER 3 VIEWS INDICATION / CLINICAL INFORMATION: Fall with right shoulder pain and decreased range of motion. COMPARISON: None available. FINDINGS: BONES / JOINT(S): There are mild degenerative changes involving the acromioclavicular joint and great er tuberosity of the humerus. I see no evidence of acute fracture or subluxation. SOFT TISSUES: No significant abnormality. ADDITIONAL FINDINGS: The visualized right lung is clear. IMPRESSION: No acute abnormality. Signer Name: Matthew Cox MD Signed: 11/08/2021 1:06 PM Workstation Name: [id number]
--- NOTE | 2021-11-08 13:32 | Emergency Department Report ---
ED Fall HPI - General Chief Complaint: Fall Stated Complaint: RT SHOULDER PAIN/FELL Time Seen by Provider: 11/08/21 12:26 Source: patient Mode of arrival: Ambulatory - History of Present Illness Initial Comments: 51-year-old black female presents to the emergency department for evaluation of left knee and right shoulder pain. She states that she fell while getting out of the shower this a.m. She denies loss of consciousness. She states that pain is 10 out of 10 and she is unable to raise her right arm. 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: yes, by family Place Fall Occurred: home Loss of Consciousness: none Prolonged Down Time?: no Symptoms Prior to Fall: none Location - Extremities: Left: Knee, Right: Shoulder Severity: severe Severity scale (0 -10): 10 Quality: aching Context: tripped/slipped Associated Symptoms: other (right shoulder and left knee pain) - Related Data Previous Rx's Medication Instructions Recorded Last Taken Type HYDROcodone/APAP 5-325 [[place] 1 each PO Q6HR PRN #10 tablet 03/17/18 Unknown Rx 5/325] Acetaminophen/Codeine [Tylenol 1 tab PO Q6H PRN #12 tab 03/29/18 Unknown Rx /Codeine # 3 tab] Ibuprofen [Motrin] 600 mg PO Q8H PRN #30 tablet 03/29/18 Unknown Rx Pantoprazole [Protonix] 40 mg PO QDAY #30 tablet 09/30/18 Unknown Rx Ibuprofen [Motrin 800 MG tab] 800 mg PO Q8HR PRN #20 tablet 01/10/19 Unknown Rx Ibuprofen [Motrin 800 MG tab] 800 mg PO Q8HR PRN #20 tablet 05/02/19 Unknown Rx Leg Brace [Knee Brace] 1 each MC DAILY #1 each 01/30/20 Unknown Rx Diclofenac Sodium 50 mg PO TID PRN #21 tablet. 02/20/21 Unknown Rx Prednisone [predniSONE 5 mg (6-Day 5 mg PO .TAPER #1 tab.ds.pk 02/20/21 Unknown Rx Pack, 21 Tabs)] methocarbamoL [Methocarbamol] 750 - 1,500 mg PO TID PRN #30 02/20/21 Unknown Rx tablet HYDROcodone/APAP 5-325 [[place] 1 each PO Q4HR PRN #15 tablet 06/19/21 Unknown Rx 5/325] Ibuprofen [Motrin 400 MG tab] 400 mg PO TID 5 Days #15 tablet 06/19/21 Unknown Rx Cyclobenzaprine [Flexeril] 10 mg PO TID PRN #21 tab 11/08/21 Unknown Rx Naproxen [Naprosyn] 500 mg PO BID #14 tab 11/08/21 Unknown Rx Allergies Allergy/AdvReac Type Severity Reaction Status Date / Time No Known Allergies Allergy Verified 06/19/21 12:40 ED Review of Systems ROS: Stated complaint: RT SHOULDER PAIN/FELL Other details as noted in HPI Comment: All other systems reviewed and negative Constitutional: denies: chills, fever Eyes: denies: eye pain ENT: denies: ear pain Respiratory: denies: shortness of breath, SOB with exertion, SOB at rest Cardiovascular: denies: chest pain, palpitations, dyspnea on exertion, orthopnea, edema, syncope, paroxysmal nocturnal dyspnea Endocrine: no symptoms reported Gastrointestinal: denies: abdominal pain, nausea, vomiting, diarrhea Genitourinary: denies: urgency, dysuria, frequency Musculoskeletal: denies: back pain Skin: denies: rash, lesions Neurological: denies: headache, weakness, abnormal gait ( ) Psychiatric: denies: anxiety, depression Hematological/Lymphatic: denies: easy bleeding, easy bruising ED Past Medical Hx - Past Medical History Hx Congestive Heart Failure: No Hx Diabetes: No Hx Asthma: No Hx COPD: No - Surgical History Additional Surgical History: Left knee surgery, tubiligation - Social History Smoking Status: Never Smoker Substance Use Type: None - Medications Home Medications: Home Medications Medication Instructions Recorded Confirmed Last Taken Type HYDROcodone/APAP 5-325 [[place]en 1 each PO Q6HR PRN #10 tablet 03/17/18 09/29/18 Unknown Rx 5/325] Acetaminophen/Codeine [Tylenol 1 tab PO Q6H PRN #12 tab 03/29/18 09/29/18 Unknown Rx /Codeine # 3 tab] Ibuprofen [Motrin] 600 mg PO Q8H PRN #30 tablet 03/29/18 09/29/18 Unknown Rx Pantoprazole [Protonix] 40 mg PO QDAY #30 tablet 09/30/18 Unknown Rx Ibuprofen [Motrin 800 MG tab] 800 mg PO Q8HR PRN #20 tablet 01/10/19 Unknown Rx Ibuprofen [Motrin 800 MG tab] 800 mg PO Q8HR PRN #20 tablet 05/02/19 Unknown Rx Leg Brace [Knee Brace] 1 each MC DAILY #1 each 01/30/20 Unknown Rx Diclofenac Sodium 50 mg PO TID PRN #21 tablet.dr 02/20/21 Unknown Rx Prednisone [predniSONE 5 mg (6-Day 5 mg PO .TAPER #1 tab.ds.pk 02/20/21 Unknown Rx Pack, 21 Tabs)] methocarbamoL [Methocarbamol] 750 - 1,500 mg PO TID PRN #30 02/20/21 Unknown Rx tablet HYDROcodone/APAP 5-325 [[place]en 1 each PO Q4HR PRN #15 tablet 06/19/21 Unknown Rx 5/325] Ibuprofen [Motrin 400 MG tab] 400 mg PO TID 5 Days #15 tablet 06/19/21 Unknown Rx Cyclobenzaprine [Flexeril] 10 mg PO TID PRN #21 tab 11/08/21 Unknown Rx Naproxen [Naprosyn] 500 mg PO BID #14 tab 11/08/21 Unknown Rx ED Physical Exam - General Limitations: No Limitations General appearance: alert, in no apparent distress - Head Head exam: Present: atraumatic, normocephalic - Eye Eye exam: Present: normal appearance. Absent: conjunctival injection - Neck Neck exam: Present: normal inspection. Absent: tenderness - Respiratory Respiratory exam: Present: normal lung sounds bilaterally. Absent: respiratory distress, wheezes, rales, rhonchi, stridor, chest wall tenderness - Cardiovascular Cardiovascular Exam: Present: regular rate, normal heart sounds - GI/Abdominal GI/Abdominal exam: Present: normal bowel sounds. Absent: soft, distended, tenderness, guarding - Expanded Upper Extremity Exam Right General: Present: normal inspection Shoulder Exam: Present: normal inspection, tenderness, tenderness over AC joint. Absent: full ROM, swelling, deformity, crepidus, dislocation, erythema Vascular: Present: normal capillary refill. Absent: vascular compromise, pulse deficit radial art - Expanded Lower Extremity Exam Left Knee exam: Present: normal inspection, tenderness. Absent: full ROM, swelling, abrasion, ecchymosis, deformity, crepidus, dislocation, erythema, effusion Neuro vascular tendon exam: Absent: no vascular compromise, pulse deficit, abnormal cap refill, motor deficit, sensory deficit, extremity cold to touch Gait: Positive: observed and normal - Back Exam Back exam: Present: normal inspection. Absent: tenderness - Neurological Exam Neurological exam: Present: alert, oriented X3 - Psychiatric Psychiatric exam: Present: normal affect, normal mood - Skin Skin exam: Present: warm, dry, intact, normal color ED Course Vital Signs 11/08/21 11:08 Temperature 98.5 F Pulse Rate 68 Respiratory 17 Rate Blood Pressure 176/83 O2 Sat by Pulse 99 Oximetry ED Medical Decision Making - Radiology Data Radiology results: report reviewed, image reviewed Right shoulder xray Impressions: 1. no acute abnormality. - Medical Decision Making 51-year-old black female presents to the emergency department for evaluation of left knee and right shoulder pain. She states that she fell while getting out of the shower this a.m. She denies loss of consciousness. She states that pain is 10 out of 10 and she is unable to raise her right arm. Right shoulder xray without acute abnormalities. Patient will be treated for musculoskeletal pain only with nsaids and muscle relaxants. She was advised to take medications as prescribed and follow up with pcp if no improvement or worsening symptoms. She verbalized understanding of and agreement with plan of care. Critical care attestation.: If time is entered above; I have spent that time in minutes in the direct care of this critically ill patient, excluding procedure time. ED Disposition Clinical Impression: Fall Qualifiers: Encounter type: initial encounter Qualified Code(s): W19.XXXA - Unspecified fall, initial encounter Right shoulder pain Qualifiers: Chronicity: acute Qualified Code(s): M25.511 - Pain in right shoulder Left knee pain Qualifiers: Chronicity: acute Qualified Code(s): M25.562 - Pain in left knee Disposition: 01 HOME / SELF CARE / HOMELESS Is pt being admited?: No Does the pt Need Aspirin: No Condition: Stable Instructions: How to Use Cold Therapy, [id number], Shoulder Pain, [id number], Acute Knee Pain, Adult, [id number] Additional Instructions: Take medications as prescribed. Follow-up with primary care provider if no improvement or worsening symptoms. Prescriptions: Cyclobenzaprine [Flexeril] 10 mg PO TID PRN #21 tab PRN Reason: Muscle Spasm Naproxen [Naprosyn] 500 mg PO BID #14 tab Referrals: ELEAZAR GUTHRIE MD [Staff Physician] - 3-5 Days Forms: Work/School Release Form(ED) Time of Disposition: 13:32
== END 2021-11-08 14:04 | disposition home or self-care (01) ==
LOC: ED 11:00
DX: M25.562 Pain in left knee (principal); M25.511 Pain in right shoulder; W19.XXXA Unspecified fall, initial encounter; Y93.89 Activity, other specified; Y92.89 Other specified places as the place of occurrence of the external cause; Y99.8 Other external cause status
CPT/HCPCS: 99283

== ENCOUNTER 2022-01-07 07:27 | Emergency (ER) | payer SELFPAY ==
[2022-01-07 08:21] VITALS: BP 171/88
--- NOTE | 2022-01-07 09:09 | Emergency Department Report ---
ED Lower Extremity HPI - General Chief Complaint: Extremity Injury, Lower Stated Complaint: RT FOOT/TOE PAIN/NUMBNESS Time Seen by Provider: 01/07/22 08:44 Source: patient Mode of arrival: Ambulatory Limitations: No Limitations - History of Present Illness Initial Comments: Patient is a 51-year-old female that comes to the emergency room complaining of acute onset of right foot pain. She states that she cannot flex her toes on her right foot. She states this started yesterday. She denies any trauma. She denies twisting or turning her foot the wrong way. She denies any knee hip or back pain. She denies any calf pain. Affect is angry. Rolling her eyes at the provider as she is asked questions. Complaint: other -: Sudden, days(s) Injury: Foot: Right Type of Injury: unknown, other (Denies) Place: home Improves With: nothing Worsens With: nothing - Related Data Previous Rx's Medication Instructions Recorded Last Taken Type Pantoprazole [Protonix] 40 mg PO QDAY #30 tablet 09/30/18 Unknown Rx Leg Brace [Knee Brace] 1 each MC DAILY #1 each 01/30/20 Unknown Rx Diclofenac Sodium 50 mg PO TID PRN #21 tablet. 02/20/21 Unknown Rx methocarbamoL [Methocarbamol] 750 - 1,500 mg PO TID PRN #30 02/20/21 Unknown Rx tablet Cyclobenzaprine [Flexeril] 10 mg PO TID PRN #21 tab 11/08/21 Unknown Rx Ibuprofen [Motrin] 800 mg PO Q8HR PRN #30 tablet 01/07/22 Unknown Rx Allergies Allergy/AdvReac Type Severity Reaction Status Date / Time No Known Allergies Allergy Verified 06/19/21 12:40 ED Review of Systems ROS: Stated complaint: RT FOOT/TOE PAIN/NUMBNESS Other details as noted in HPI Comment: All other systems reviewed and negative ED Past Medical Hx - Past Medical History Previous Medical History?: No Hx Congestive Heart Failure: No Hx Diabetes: No Hx Asthma: No Hx COPD: No - Surgical History Past Surgical History?: Yes Additional Surgical History: Left knee surgery, tubiligation - Family History Family history: no significant - Social History Smoking Status: Never Smoker Substance Use Type: None - Medications Home Medications: Home Medications Medication Instructions Recorded Confirmed Last Taken Type Pantoprazole [Protonix] 40 mg PO QDAY #30 tablet 09/30/18 Unknown Rx Leg Brace [Knee Brace] 1 each MC DAILY #1 each 01/30/20 Unknown Rx Diclofenac Sodium 50 mg PO TID PRN #21 tablet. 02/20/21 Unknown Rx methocarbamoL [Methocarbamol] 750 - 1,500 mg PO TID PRN #30 02/20/21 Unknown Rx tablet Cyclobenzaprine [Flexeril] 10 mg PO TID PRN #21 tab 11/08/21 Unknown Rx Ibuprofen [Motrin] 800 mg PO Q8HR PRN #30 tablet 01/07/22 Unknown Rx ED Physical Exam - General Limitations: No Limitations General appearance: alert, in no apparent distress - Head Head exam: Present: atraumatic, normocephalic - Eye Eye exam: Present: normal appearance - ENT ENT exam: Present: mucous membranes moist - Neck Neck exam: Present: normal inspection - Respiratory Respiratory exam: Present: normal lung sounds bilaterally. Absent: respiratory distress - Cardiovascular Cardiovascular Exam: Present: regular rate, normal rhythm. Absent: systolic murmur, diastolic murmur, rubs, gallop - GI/Abdominal GI/Abdominal exam: Present: soft, normal bowel sounds - Extremities Exam Extremities exam: Present: normal inspection - Back Exam Back exam: Present: normal inspection - Neurological Exam Neurological exam: Present: alert, oriented X3 - Psychiatric Psychiatric exam: Present: normal affect, normal mood - Skin Skin exam: Present: warm, dry, intact, normal color. Absent: rash ED Course Vital Signs 01/07/22 08:20 Temperature 98.0 F Pulse Rate 77 Respiratory 16 Rate Blood Pressure 171/88 O2 Sat by Pulse 98 Oximetry ED Lower Extremity MDM - Radiology Data Radiology results: report reviewed, image reviewed No acute process - Medical Decision Making Patient is neurovascularly intact. EMR reviewed. Although patient denies this in the past she has had similar complaints. Medicated with Motrin for pain. On discharge exam patient is ambulatory and neurovascularly intact. Patient being discharged home with discharge plan of care including diet, activity, medications and follow-up. She verbalizes understanding of plan of care Vital Signs 01/07/22 08:20 Temperature 98.0 F Pulse Rate 77 Respiratory 16 Rate Blood Pressure 171/88 O2 Sat by Pulse 98 Oximetry - Differential Diagnosis Rule out fracture Critical care attestation.: If time is entered above; I have spent that time in minutes in the direct care of this critically ill patient, excluding procedure time. ED Disposition Clinical Impression: Foot pain Qualifiers: Laterality: right Qualified Code(s): M79.671 - Pain in right foot Disposition: 01 HOME / SELF CARE / HOMELESS Is pt being admited?: No Does the pt Need Aspirin: No Condition: Stable Instructions: Foot Pain Additional Instructions: Warm compresses may help. Stay well-hydrated with water. Tylenol may be used for pain Medication as ordered today Follow-up with PCP as instructed. Referral below. Prescriptions: Ibuprofen [Motrin] 800 mg PO Q8HR PRN #30 tablet PRN Reason: Pain, Moderate (4-6) Referrals: BEN PULLIAM MD [Staff Physician] - 3-5 Days Forms: Work/School Release Form(ED) Time of Disposition: 09:06
[2022-01-07] MEDS ORDERED: IBUPROFEN 800 MG TAB PO ONE (09:10)
--- NOTE | 2022-01-07 09:29 | XRay Report ---
RIGHT TOES 3 VIEWS INDICATION: pain. COMPARISON: Right foot films 01/10/2019 IMPRESSION: There is a small calcific density measuring 2-3 mm just medial to the proximal interphal angeal joint of the third toe which is new since the previous right foot films in 2019. The etiology of this is unclear on x-ray. An avulsion injury could be considered although this is an atypical plac e for an avulsion injury especially with no history of trauma. I suppose a soft tissue foreign body c ould also be considered. Otherwise there is no evidence for acute fracture, bone lesion or significan t joint pathology. If further evaluation is needed, perhaps MRI could provide additional information. Please correlate with the patient's clinical history and presentation. Signer Name: Rudy Cannon Jr, MD Signed: 01/07/2022 9:25 AM Workstation Name: [id number]
== END 2022-01-07 09:50 | disposition home or self-care (01) ==
LOC: ED 07:27
DX: M79.671 Pain in right foot (principal)
CPT/HCPCS: 99283